=== PATIENT | male | born 1965 | race Caucasian/White ===

== ENCOUNTER 2024-07-28 11:11 | Emergency (ER) | payer BC, SELFPAY ==
[2024-07-28 11:33] VITALS: BP 167/96
[2024-07-28 12:04] LABS: % Basophils 0.5 % (0-2); % Eosinophils 0.8 % (0-6); % Immature Granulocytes 0.6 % (0-0.5); % Lymphocytes 13.9 % (20.5-51.1); % Monocytes 9.1 % (1.7-9.3); % Neutrophils 75.1 % (42.2-75.2); Absolute Eosinophils 0.1 10^3/uL (0-0.7); Absolute Immature Granulocytes 0.1 10^3/uL (0-0.05); Absolute Lymphocytes 1.1 10^3/uL (1.2-3.4); Absolute Monocytes 0.7 10^3/uL (0.1-0.6); Absolute Neutrophils 5.8 10^3/uL (1.4-6.5); Hematocrit 47.3 % (39.0-52.0); Hemoglobin 16.1 g/dL (13.0-18.0); Mean Corpuscular Hgb 32.3 pg (27.0-31.0); Mean Corpuscular Volume 94.8 fL (80.0-94.0); Mean Platelet Volume 10.7 fL (7.4-10.4); Nucleated Red Blood Cells % 0 % (-); Platelet Count 220 10^3/uL (130-400); Red Blood Cell Count 4.99 10^6/uL (4.70-6.10); Red Cell Dist. Width 13.3 % (11.5-14.5); White Blood Cell Count 7.7 10^3/uL (4.8-10.8)
[2024-07-28 12:12] LABS: INR 0.92; PT 12.7 Sec (11.4-14.6)
[2024-07-28 12:15] LABS: ALT (SGPT) 36 U/L (0-50); AST (SGOT) 19 U/L (17-59); Albumin 4.6 g/dl (3.5-5.0); Alkaline Phosphatase 55 U/L (38-126); Blood Urea Nitrogen 31 mg/dl (9-20); Calcium 9.6 mg/dl (8.4-10.2); Carbon Dioxide 27 mmol/L (22-30); Chloride 104 mmol/L (98-107); Glucose 104 mg/dl (70-99); Potassium 4.6 mmol/L (3.5-5.1); Sodium 140 mmol/L (135-145); Total Bilirubin 0.8 mg/dl (0.2-1.3); Total Protein 6.9 g/dl (6.3-8.2); eGFR > 60.00
[2024-07-28 12:26] LABS: Troponin I < 0.012 ng/ml
--- NOTE | 2024-07-28 13:47 | ED.GENMED ---
History of Present Illness
<Anne Chavez MD, Resident - Last Filed: 07/28/24 14:52>
General
Chief Complaint: Heart Rate Problem
Time Seen by Provider: 07/28/24 13:23
History of Present Illness
History of Present Illness:
59-year-old male with past medical history of asthma, MURIEL, BPH presents to the ED with irregular heart rhythm. Pt states he was first notified of an abnormal heart rhythm (Afib) about 45 days ago by his apple watch. He ignored this as has asthma and
his symptoms usually get worse around this time of the year. Pt notes he has had SOB after taking the stairs but attributed that to his asthma. Patient is scheduled for a right hernia repair next week and did his pre-op evaluation last week. Pt
states he forgot to mention he has had Afib at that time but called his primary care doctor yesterday and was advised to come to the ER for further evaluation. This morning patient got up to get his coffee but was having SOB which was unusual to
him. He has been feeling fatigued recently. Pt notes he has been noticing his bouncing heart rate more frequently lately that is occasionally associated with chest pain on the left side. Patient describes the pain as tightness. Pt has also recently
been diagnosed with MURIEL and will be using CPAP starting next week. Denies nausea, vomiting, diarrhea, cough, confusion. No history of stroke/TIA/ DVT/PE.
Past History
<Anne Chavez MD, Resident - Last Filed: 07/28/24 14:52>
Past History
ED Past Medical History: Asthma and Other (BPH, MURIEL)
ED Past Surgical History: None
Family History
Family History: CAD (Sister (had morbid obesity and at 63))
Review of Systems
<Anne Chavez MD, Resident - Last Filed: 07/28/24 14:52>
Review of Systems
Constitutional: Reports fatigue
EENT: Reports no symptoms
Respiratory: Reports no symptoms
Cardiac: Reports palpitations
ABD/GI: Reports no symptoms
: Reports no symptoms
Musculoskeletal: Reports no symptoms
Skin: Reports no symptoms
Neurological: Reports no symptoms
Endocrine: Reports no symptoms
Hematologic/Lymphatic: Reports no symptoms
Psychiatric: Reports no symptoms
Phy Exam
<Anne Chavez MD, Resident - Last Filed: 07/28/24 14:52>
Physical Exam
Physical Exam:
GENERAL: Alert, in no apparent distress
EYE: pupils equal and reactive
NECK: Supple, no significant adenopathy.
ENT: o/p clr, mmm.
CARDIAC: Irregular rhythm. Normal rate. Distal pulses strong bilaterally.
LUNGS: Clear breath sounds bilaterally, no acute respiratory distress, no wheezes/rales/rhonchi
ABDOMEN: Soft, without focal tenderness, no r/g, no cvat
NEUROLOGICAL: Alert and oriented, no focal neuro deficits
SKIN: Warm and dry, skin intact.
MUSCULOSKELETAL: No edema, well perfused.
PSYCH: Normal and appropriate interaction.
Course
<Anne Chavez MD, Resident - Last Filed: 07/28/24 14:52>
Orders/Labs/Results
Orders:
Orders
07/28/24 11:14
EKG [Electrocardiogram (*1)] Urgent
Reason for Study: Palpitations
07/28/24 11:15
EKG- Treatment ONCE
07/28/24 11:48
Complete Blood Count/With Diff Urgent
Comprehensive Metabolic Panel Urgent
PT/INR [Prothrombin Time] Urgent
TSH Reflex To Free T4 Urgent
Comment: TSH REFLEX ADDED ON BY FLOOR 2PM 07-28-24
Troponin I Urgent
07/28/24 14:07
Add On- LAB Urgent
Tests Added?: TSH reflex to T4
07/28/24 15:24
Apixaban [Eliquis] 5 mg PO ONCE ONE
Metoprolol Xl [Toprol Xl] 12.5 mg PO NOW STA
Abnormal Lab Results
07/28/24
11:48
MCV 94.8 H fL
(80.0-94.0)
MCH 32.3 H pg
(27.0-31.0)
MPV 10.7 H fL
(7.4-10.4)
Abs Immat Gran (auto) 0.1 H 10^3/uL
(0-0.05)
Absolute Lymphs (auto) 1.1 L 10^3/uL
(1.2-3.4)
Absolute Monos (auto) 0.7 H 10^3/uL
(0.1-0.6)
Immature Gran % 0.6 H %
(0-0.5)
Lymphocytes % 13.9 L %
(20.5-51.1)
BUN 31 H mg/dl
(9-20)
Glucose 104 H mg/dl
(70-99)
07/28/24 11:48
07/28/24 11:48
Vital Signs
Initial and Last Documented VS:
Initial Vital Signs
Temp Pulse Resp BP Pulse Ox
36.7 C 88 16 167/96 98
07/28/24 11:33 07/28/24 11:33 07/28/24 11:33 07/28/24 11:33 07/28/24 11:33
Last Documented Vital Signs
Temp Pulse Resp BP Pulse Ox
36.7 C 82 20 133/77 95
07/28/24 11:33 07/28/24 15:45 07/28/24 15:45 07/28/24 16:00 07/28/24 14:30
<Glen Mcwilliams MD - Last Filed: 07/28/24 16:28>
Orders/Labs/Results
Orders:
Orders
07/28/24 11:14
EKG [Electrocardiogram (*1)] Urgent
Reason for Study: Palpitations
07/28/24 11:15
EKG- Treatment ONCE
07/28/24 11:48
Complete Blood Count/With Diff Urgent
Comprehensive Metabolic Panel Urgent
PT/INR [Prothrombin Time] Urgent
TSH Reflex To Free T4 Urgent
Comment: TSH REFLEX ADDED ON BY FLOOR 2PM 07-28-24
Troponin I Urgent
07/28/24 14:07
Add On- LAB Urgent
Tests Added?: TSH reflex to T4
07/28/24 15:24
Apixaban [Eliquis] 5 mg PO ONCE ONE
Metoprolol Xl [Toprol Xl] 12.5 mg PO NOW STA
Abnormal Lab Results
07/28/24
11:48
MCV 94.8 H fL
(80.0-94.0)
MCH 32.3 H pg
(27.0-31.0)
MPV 10.7 H fL
(7.4-10.4)
Abs Immat Gran (auto) 0.1 H 10^3/uL
(0-0.05)
Absolute Lymphs (auto) 1.1 L 10^3/uL
(1.2-3.4)
Absolute Monos (auto) 0.7 H 10^3/uL
(0.1-0.6)
Immature Gran % 0.6 H %
(0-0.5)
Lymphocytes % 13.9 L %
(20.5-51.1)
BUN 31 H mg/dl
(9-20)
Glucose 104 H mg/dl
(70-99)
07/28/24 11:48
07/28/24 11:48
Vital Signs
Initial and Last Documented VS:
Initial Vital Signs
Temp Pulse Resp BP Pulse Ox
36.7 C 88 16 167/96 98
07/28/24 11:33 07/28/24 11:33 07/28/24 11:33 07/28/24 11:33 07/28/24 11:33
Last Documented Vital Signs
Temp Pulse Resp BP Pulse Ox
36.7 C 82 20 133/77 95
07/28/24 11:33 07/28/24 15:45 07/28/24 15:45 07/28/24 16:00 07/28/24 14:30
<Anne Chavez MD, Resident - Last Filed: 07/28/24 14:52>
MDM/Problems Addressed
Differential Diagnosis Includes:
New onset Afib
MDM/Problems Addressed:
- CBC, CMP
- EKG
- Troponin
- TSH
<Anne Chavez MD, Resident - Last Filed: 07/28/24 14:52>
*Critical Care Note
Total Time (30-74mins, 75-104mins- exclusive of procedures): Not Applicable
ED Attending Note
<Anne Chavez MD, Resident - Last Filed: 07/28/24 14:52>
-
Portions of this chart may have been created with voice recognition software.� Occasional wrong word or��sound alike� substitutions may have occurred due to the inherent limitations of voice recognition software.
<Glen Mcwilliams MD - Last Filed: 07/28/24 16:28>
ED Attending Note
Patient seen and examined by attending physician: Yes
I performed a history and physical exam of patient and discussed management with resident, I reviewed resident's note and agree with documented findings and plan of care.: Yes
ED Attending Note:
I have seen and evaluated the patient with a [id number] encounter. I have spoken to the resident and involved in the medical history, the physical exam, medical decision making.
Evaluation and management service: agree unless noted differently below.
Results interpretation: agree unless noted differently below.
Focused HPI: 59-year-old male presents to the emergency room with new onset A-fib. Patient is currently getting preoperative testing for hernia repair next week. He saw his primary doctor in the office for a physical exam, apparently he mentioned
that he has been having occasional palpitations and an alarm on his Apple Watch showing A-fib over the past month or 2. An EKG in the office showed new onset A-fib. Referred to the ER for assessment. Patient says that he has had only occasional
palpitations and some increased fatigue but no significant symptoms. He says he does get some shortness of breath but he thinks this is more asthma related rather than from A-fib as he typically gets similar symptoms at this time of year. No chest
pain. He denies any known history of A-fib or heart issues. He denies any other complaints.
Physical exam: Awake alert not in distress. Regular rate but irregularly irregular rhythm. No edema in the extremities. Breathing comfortably no distress.
Medical Decision Makin-year-old male was referred to the emergency room after being discovered to have new onset A-fib. He is rate controlled and essentially asymptomatic. He reports only occasional sensation of palpitations. Will plan to
start on low-dose beta-precious, no history of bleeding or bleeding risk, will proceed with anticoagulation on Eliquis. partnership development manager was able to help provide coupons to cover cost. Will refer to cardiology for further assessment. I had a long
conversation about this treatment plan, follow-up plan with the patient and he feels very comfortable with that. We did send screening labs including a CBC, CMP, thyroid studies, troponin levels which were all unremarkable. Discharged with
referral via our ER chest pain hotline�denies chest pain but this will help with expedited cardiology follow-up. All questions answered.
Discharge Plan
Departure
Patient Disposition: Home (Routine Discharge)
Date of Disposition: 07/28/24
Time of Disposition: 15:26
Patient with high blood pressure during this ER visit?: Yes
Discharge Problem:
Atrial fibrillation
Instructions: Atrial Fibrillation (DC), Chest Pain DCA Follow Up
Prescriptions:
New
Eliquis 5 mg tablet
5 mg PO BID Qty: 60 0RF
metoprolol succinate [Toprol XL] 25 mg tablet extended release 24 hr
12.5 mg PO DAILY Qty: 30 0RF
Referrals:
Wing Villar MD [Active] - Call in 1-3 days for appt
Wai Garrison MD [Family Provider] - Follow up in 5-7 days
Activity Restrictions/Additional Instructions:
Thank you for visiting the Emergency Department at [facility].
1. Please schedule a follow up appointment as directed. Call first thing tomorrow morning to make an appointment.
2. If indicated, please take your medications as instructed and indicated on discharge paperwork.
3. If any of your symptoms do not improve, or persist, or become more severe within 6-12 hours, please return to the emergency department for further care.
4. Please return to the emergency department if you develop a headache, neck pain/stiffness, fever greater than 100.4F, chest pain, shortness of breath, persistent nausea, vomiting, slurred speech, difficulty walking, numbness/tingling, weakness,
signs of infection or any other symptoms that are worrisome to you.
Please call [phone] if you have any questions.
Interventions
Interventions:
*Risk Screen - Suicide Last Done: 07/28/24 11:33
*General Assessment Last Done: 07/28/24 14:00
*Neglect/Abuse Screening Last Done: 07/28/24 11:33
ED- Fall Risk Assessment Last Done: 07/28/24 14:00
*ED COVID-19 Vaccine History Last Done: 07/28/24 14:00
ED- Cardiac Assessment Last Done: 07/28/24 14:00
ED- Pulmonary Assessment Last Done: 07/28/24 14:00
Discharge Date and Time
Print Language: MALAYSIAN
[2024-07-28 14:00] VITALS: BMI 32.6
[2024-07-28 14:04] VITALS: BP 131/83
[2024-07-28] MEDS: TOPROL XL 12.5 MG PO (15:33)
[2024-07-28 15:34] VITALS: BP 138/76
[2024-07-28] MEDS: ELIQUIS 5 MG PO (15:36)
--- NOTE | 2024-07-28 15:51 | CM ---
CM consult for Eliquis
Call with [facility] [phone]
Eliquis pricing obtained
Eliquis 5 mg BID
30 day retail- $100
90 day mail order- $200
Bedside meeting with pt and spouse
Costs affordable, educated on indigent program if needed in the future
Co-pay card along with trial card provided
[2024-07-28 16:00] VITALS: BP 133/77
[2024-07-28 16:11] LABS: TSH Reflex To Free T4 1.25 uIU/ml (0.47-4.68)
== END 2024-07-28 16:10 | disposition home or self-care (01) ==
LOC: EMR 11:11
PROVIDERS: Emergency Medicine; EMERGENCY PHYSICIAN Emergency Medicine; FAMILY PHYSICIAN Family Medicine
DX: I48.91 Unspecified atrial fibrillation (principal); J45.909 Unspecified asthma, uncomplicated; G47.33 Obstructive sleep apnea (adult) (pediatric); N40.0 Benign prostatic hyperplasia without lower urinary tract symptoms; Z82.49 Family history of ischemic heart disease and other diseases of the circulatory system; Z83.49 Family history of other endocrine, nutritional and metabolic diseases
CPT/HCPCS: 99283; 80053; 84443; 84484; 85025; 85610; 93005

== ENCOUNTER → 2024-07-31 09:27 | Day surgery (SDC) | payer BC, SELFPAY ==
--- NOTE | 2024-07-31 13:01 | ITS.CL.CARDI ---
Branch Office Manager - Cardioversion
Cardioversion
Procedure Report:
Date of Procedure: 07/31/24
Procedure: Cardioversion
Indication: Symptomatic atrial fibrillation
Performing Physician: Kell Mccormick DO [facility]
Anticoagulation: Eliquis
Preprocedure transesophageal echocardiogram without left atrial appendage thrombus.
Technique: The patient was brought to the holding area. Signed informed consent was obtained. A time out was called and performed. The patient was anesthetized by the anesthesia service. Anticoagulation status was reviewed and appropriate.
Transesophageal echocardiogram performed without complications; no left atrial pended thrombus. R2 pads were placed anteriorly and posteriorly. A 200 J synchronized biphasic shock restored normal sinus rhythm without significant bradycardia. There
were no complications.
Conclusion: Uncomplicated cardioversion from atrial fibrillation to sinus rhythm.
Recommendation: Routine post cardioversion care. Continue local intermodal truck driver anticoagulation.
== END | disposition home or self-care (01) ==
LOC: CATH 09:27
PROVIDERS: ATTENDING PHYSICIAN Internal Medicine Cardiovascular Disease; FAMILY PHYSICIAN Family Medicine
DX: I48.91 Unspecified atrial fibrillation (principal); Z79.01 Long term (current) use of anticoagulants; I08.1 Rheumatic disorders of both mitral and tricuspid valves; Z79.899 Other long term (current) drug therapy
CPT/HCPCS: 93312; 93320; 93325; 92960; 93005

== ENCOUNTER → 2024-08-17 07:13 | Outpatient (REF) | payer BC, SELFPAY | LOC: DHCBC/DCA 07:13 | PROVIDERS: ATTENDING PHYSICIAN Internal Medicine Cardiovascular Disease; FAMILY PHYSICIAN Family Medicine | DX: R06.02 Shortness of breath (principal); I48.19 Other persistent atrial fibrillation | CPT/HCPCS: 78452; 93017; A9500 ==

== ENCOUNTER 2024-10-15 09:38 | Day surgery (SDC) | payer OTHER, SELFPAY ==
--- NOTE | 2024-10-15 11:11 | ITS.CL.CARDI ---
Supervisor Scrap Preparation - Cardioversion
Cardioversion
Procedure Report:
Date of Procedure: 10/15/24
Procedure: Cardioversion
Indication: Symptomatic atrial fibrillation
Performing Physician: Jose Nguyễn MD
Technique: The patient was brought to the holding area. Signed informed consent was obtained. A time out was called and performed. The patient was anesthetized by the anesthesia service. Anticoagulation status was reviewed and appropriate. R2 pads
were placed anteriorly and posteriorly. A 200 J synchronized biphasic shock restored normal sinus rhythm without significant bradycardia. There were no complications.
Conclusion: Uncomplicated cardioversion from atrial fibrillation to sinus rhythm.
Recommendation: Routine post cardioversion care. Continue detention anticoagulation.
[2024-10-15 11:27] VITALS: BMI 31.3
== END 2024-10-15 12:07 | disposition home or self-care (01) ==
LOC: CATH 09:38
PROVIDERS: ATTENDING PHYSICIAN Internal Medicine Cardiovascular Disease; FAMILY PHYSICIAN Family Medicine; OTHER PHYSICIAN Internal Medicine Cardiovascular Disease
DX: I48.19 Other persistent atrial fibrillation (principal); Z79.01 Long term (current) use of anticoagulants
CPT/HCPCS: 92960; 93005

== ENCOUNTER 2024-11-18 08:00 | Day surgery (SDC) | payer OTHER, SELFPAY ==
[2024-10-29 13:14] VITALS: BMI 33.9
[2024-10-29 13:46] LABS: % Basophils 0.8 % (0-2); % Eosinophils 0.9 % (0-6); % Immature Granulocytes 0.3 % (0-0.5); % Lymphocytes 21.1 % (20.5-51.1); % Monocytes 6.8 % (1.7-9.3); % Neutrophils 70.1 % (42.2-75.2); Absolute Basophils 0.1 10^3/uL (0-0.2); Absolute Eosinophils 0.1 10^3/uL (0-0.7); Absolute Lymphocytes 1.6 10^3/uL (1.2-3.4); Absolute Monocytes 0.5 10^3/uL (0.1-0.6); Absolute Neutrophils 5.3 10^3/uL (1.4-6.5); Hematocrit 45.8 % (39.0-52.0); Hemoglobin 15.7 g/dL (13.0-18.0); Mean Corp Hgb Conc. 34.3 g/dL (33.0-37.0); Mean Corpuscular Hgb 32.2 pg (27.0-31.0); Mean Corpuscular Volume 93.9 fL (80.0-94.0); Mean Platelet Volume 10.7 fL (7.4-10.4); Nucleated Red Blood Cells % 0 % (-); Platelet Count 217 10^3/uL (130-400); Red Blood Cell Count 4.88 10^6/uL (4.70-6.10); Red Cell Dist. Width 12.7 % (11.5-14.5); White Blood Cell Count 7.6 10^3/uL (4.8-10.8)
[2024-10-29 13:55] LABS: INR 1.03
[2024-10-29 14:06] LABS: ALT (SGPT) 38 U/L (0-50); AST (SGOT) 16 U/L (17-59); Albumin 4.4 g/dl (3.5-5.0); Alkaline Phosphatase 56 U/L (38-126); Blood Urea Nitrogen 32 mg/dl (9-20); Calcium 9.9 mg/dl (8.4-10.2); Carbon Dioxide 27 mmol/L (22-30); Chloride 102 mmol/L (98-107); Estimated Creatinine Clearance 89 ml/min; Glucose 91 mg/dl (70-99); Potassium 4.1 mmol/L (3.5-5.1); Sodium 138 mmol/L (135-145); Total Bilirubin 0.9 mg/dl (0.2-1.3); Total Protein 6.8 g/dl (6.3-8.2); eGFR > 60.00
[2024-11-18] VITALS (12 sets, daily range): BP systolic 121–154; BP diastolic 63–93
[2024-11-18 11:38] LABS: ACT-LR - POC 326 Seconds (116-155)
[2024-11-18 11:53] LABS: ACT-LR - POC 358 Seconds (116-155)
[2024-11-18] MEDS: ANESTHETIC LOZENGE 1 LOZENGE PO (13:36)
--- NOTE | 2024-11-18 16:25 | ITS.CL.ABL ---
Virtualization Architect - Ablation
Ablation
Procedure Report:
ELECTROPHYSIOLOGIC STUDY AND POSSIBLE ABLATION
DATE: November 18, 2024
Primary Care Provider: Dr. Wai Garrison
Primary Director Of Dietary: Dr Kell Mccormick
INDICATION:
Symptomatic Atrial Fibrillation.
Persistent
HISTORY: See H and P.
Symptomatic AF, poorly controlled with attempted medical therapy
HAS-BLED: 0
CHADSVASc: 0
PRESENTING RHYTHM: SR -> AF
HISTORY: See H and P.
Symptomatic AF, poorly controlled with attempted medical therapy.
ANTICOAGULATION: Apixaban
'TIME-OUT': called and confirmed.
SEDATION/ANESTHESIA: provided via the anesthesia department using general anesthesia.
PROCEDURE:
Ultrasound Guidance with real-time visualization of needle insertion and vessel patency performed by ks for femoral venous Vascular Access.
Under real-time US guidance, the needle was advanced with negative pressure into the vein. The needle was seen entering the vessel lumen with a good return of dark red flow, the syringe was removed, non-pulsatile, dark red blood low was noted and
the wire was passed without difficulty, then the needle was removed. US confirmed the wire was in the vein, not going into an artery,
Images were taken and saved for the patient's permanent record. Imaging findings typical femoral venous anatomy. Direct visualization of needle puncture into the femoral vein was observed and recorded.
A decapolar CS catheter was placed within the CS for mapping and pacing.
The intracardiac ultrasound catheter was positioned in the RA for continuous intracardiac ultrasound imaging.
Heparin bolus and infusion to target ACT at 300 -350 seconds was administered. Transseptal puncture was performed. This entailed advancing a sheath with dilator into the superior vena cava and withdrawing both (monitoring intracardiac ultrasound,
fluoroscopy and tip pressure) with the tip oriented toward the atrial septum. The fossa ovalis was engaged (indicated by sudden displacement of the sheath tip as well as tenting of the fossa seen on intracardiac ultrasound).
The Farapulse transseptal system was used. Left atrial catheter position was confirmed by echocardiographic imaging and fluoroscopy followed by RF delivery using the CREATIV[employer]COM system resulting in successful LA access with pressure monitoring
demonstrating LA pressure waveforms (LA mean pressure 14 mm Hg). The sheath was advanced over the dilator and positioned in the left atrium.
The Anaya Grid multipolar mapping catheter was initially positioned through the transseptal sheath for high density mapping.
Geometry and voltage mapping was performed using the Anaya multipolar grid catheter. Ensite-X was utilized for three-dimensional electroanatomical mapping.
A 3-D map was created using Ensite-X in Voxel mode. A 3-D reconstructed CT image was compared to the 3-D Navex map to assist in anatomic evaluation, mapping and ablation.
The Dolphin catheter and system was used for cardiac ablation. Catheter positioning was guided and confirmed using both I.C.E. and fluoroscopy.
PV isolation approach was used to electrically isolate each PV ostia (LSPV, LIPV, RSPV, RIPV).
Additional energy applications/additional ablation set was required to accomplish wide area circumferential ablation around each of the pulmonary vein sets and additionally ablation to accomplish LA posterior wall ablation.
Remapping with the Anaya multipolar grid catheter found that all PVPs were eliminated at each vein demonstrating entrance block. Also pacing from the multipolar mapping catheter around the the circumference of the ostia was performed at 10 ma and
2.0 msec output to assess for exit block. This demonstrated electrical isolation at each of the pulmonary vein ostia (LSPV, LIPV, RSPV, RIPV). There is also entrance and exit block at the LA posterior wall.
Programmed electrostimulation which included both burst atrial pacing and delivery of atrial decremental extrastimuli down to atrial ERP failed to induce any sustained arrhythmias.
I.C.E. :
Pre-Ablation Post-Ablation
LVEF: 55 % 55 %
WMA: none none
Pericardial effusion: none none
COMPLICATIONS:
None
SUMMARY:
- Mapping and ablation to isolate the PVs
- Additional AF ablation set after PVI.
- 3-D Electroanatomical Mapping
- Intracardiac Ultrasound
- Ultrasound guidance for vascular access
Post ablation, I discussed today's findings and results with the patient's , Alethea.
RECOMMENDATIONS:
- Observe in monitored bed.
- Maintain oral anticoagulation.
- Office visit with me is scheduled for February 11, 2025.
Copy to:
Dr. Wai Garrison
Dr Kell Mccormick
--- NOTE | 2024-11-18 16:55 | W.PN.UPDATE ---
Update Note
Progress Note Update
59 yo WM s/p PVI (same day). He denies cp, sob, jose diet, voiding, amb w/o dizziness, EKG SR, R fem site c/d/i no HT, soft. He will resume Eliquis tonight and resume diltiazem tomorrow with low HR today. Activity restrictions reviewed. He will f/u
Dr. Martinez in 1 mo. He is for d/c home after 5pm if groin stable.
== END 2024-11-18 17:17 | disposition home or self-care (01) ==
LOC: CATH 08:00
PROVIDERS: ATTENDING PHYSICIAN Internal Medicine Cardiovascular Disease; FAMILY PHYSICIAN Family Medicine; OTHER PHYSICIAN Internal Medicine Cardiovascular Disease
DX: I48.0 Paroxysmal atrial fibrillation (principal); K40.90 Unilateral inguinal hernia, without obstruction or gangrene, not specified as recurrent; Z79.01 Long term (current) use of anticoagulants; I10 Essential (primary) hypertension; J45.901 Unspecified asthma with (acute) exacerbation; E66.9 Obesity, unspecified; Z68.33 Body mass index [BMI] 33.0-33.9, adult; G47.33 Obstructive sleep apnea (adult) (pediatric); N40.0 Benign prostatic hyperplasia without lower urinary tract symptoms; N20.0 Calculus of kidney; K76.9 Liver disease, unspecified; Z79.899 Other long term (current) drug therapy
CPT/HCPCS: C1732; C1892; 36415; 75572; 76937; 80053; 83735; 85025; 85347; 85610; 86850; 86900; 86901; 93005; 93656; 93657; C1733; C1766; Q9967

== ENCOUNTER 2025-04-26 14:06 | Emergency (ER) | payer OTHER, SELFPAY ==
[2025-04-26 14:07] VITALS: BP 156/86
--- NOTE | 2025-04-26 16:09 | ED.GENMED ---
Addendum entered and electronically signed by Lang Vanegas PA-C 04/28/25 14:03:
9 AM: Patient had positive fluid culture aspirate of Staph aureus. I contacted patient via telephone and left voicemail for patient to contact the ER back to discuss these results.
Original Note:
History of Present Illness
<Jade Sarkar PA-C - Last Filed: 04/27/25 00:29>
General
Chief Complaint: Musculo-Skeletal Complaint
Source: patient
Exam Limitations: none
Time Seen by Provider: 04/26/25 15:48
Nursing documentation reviewed up to this point in time: agreed with
History of Present Illness
History of Present Illness:
see MDM
Past History
<DANIEL Tilley Last Filed: 04/27/25 00:29>
Past History
ED Past Medical History: Asthma and Other (BPH, MURIEL)
ED Past Surgical History: None
Family History
Family History: CAD (Sister (had morbid obesity and at 63))
Phy Exam
<DANIEL Tilley Last Filed: 04/27/25 00:29>
Physical Exam
Physical Exam:
GENERAL: Alert , in no apparent distress
EYE: pupils equal and reactive
NECK: Supple
ENT: o/p clr, mmm.
CARDIAC: Regular rate and rhythm .
LUNGS: Clear breath sounds bilaterally, no acute respiratory distress, no wheezes/rales/rhonchi
ABDOMEN: Soft, without focal tenderness, no r/g, no cvat, normal bowel sounds
NEUROLOGICAL: Alert and oriented, no focal neuro deficits
SKIN: Warm and dry, skin intact.
erythema and warmth iffusely posterior L elbow with STS and tenderness;
MUSCULOSKELETAL: No edema, well perfused. neg willian's sign
L elbow full ROM, no significnat pain
tenderness at the bursa/olecranon
PSYCH: Normal and appropriate interaction.
Course
<Jade Sarkar PA-C - Last Filed: 04/27/25 00:29>
Orders/Labs/Results
Orders:
Orders
04/26/25 16:17
Ketorolac [Toradol] 30 mg IV NOW STA
04/26/25 16:29
Complete Blood Count/With Diff Urgent
Comprehensive Metabolic Panel Urgent
Lactic Acid Urgent
Lyme Progressive Urgent
Blood Culture Q30M
ALIEC Source: Blood/Venous
Specimen Description:
Blood Culture Q30M
ALICE Source: Blood/Venous
Specimen Description:
04/26/25 17:32
Clindamycin HCl [Cleocin] 300 mg PO NOW STA
04/26/25 17:55
Amoxicillin [Amoxil] 500 mg PO NOW STA
Doxycycline [Vibramycin] 100 mg PO NOW STA
04/26/25 18:06
Body Fluid Crystals Urgent
What is the Body Fluid: joint
Date Specimen was Collected: 04/26/25
Time Specimen was Collected: 18:03
Fluid Culture with Gram Stain Urgent
ALICE Source: Joint Fluid
Specimen Description:
Date Specimen was Collected: 04/26/25
Time Specimen was Collected: 18:03
Wound Culture [Wound/Abscess/Other Culture] Urgent
ALICE Source: Abscess
Specimen Description:
Date Specimen was Collected: 04/26/25
Time Specimen was Collected: 16:17
Abnormal Lab Results
04/26/25
16:29
MCH 31.8 H pg
(27.0-31.0)
Absolute Neuts (auto) 8.0 H 10^3/uL
(1.4-6.5)
Absolute Lymphs (auto) 1.1 L 10^3/uL
(1.2-3.4)
Absolute Monos (auto) 1.0 H 10^3/uL
(0.1-0.6)
Neutrophils % 78.1 H %
(42.2-75.2)
Lymphocytes % 10.5 L %
(20.5-51.1)
Monocytes % 10.0 H %
(1.7-9.3)
BUN 21 H mg/dl
(9-20)
04/26/25 16:29
04/26/25 16:29
Vital Signs
Temp: 100.1 F
Initial and Last Documented VS:
Initial Vital Signs
Temp Pulse Resp BP Pulse Ox
98.4 F 86 16 156/86 96
04/26/25 14:07 04/26/25 14:07 04/26/25 14:07 04/26/25 14:07 04/26/25 14:07
Last Documented Vital Signs
Temp Pulse Resp BP Pulse Ox
100.1 F 63 18 129/75 95
04/26/25 16:18 04/26/25 16:44 04/26/25 16:44 04/26/25 16:44 04/26/25 16:44
<Georges HDavid Meadows, DO - Last Filed: 04/27/25 20:18>
Orders/Labs/Results
Orders:
Orders
04/26/25 16:17
Ketorolac [Toradol] 30 mg IV NOW STA
04/26/25 16:29
Complete Blood Count/With Diff Urgent
Comprehensive Metabolic Panel Urgent
Lactic Acid Urgent
Lyme Progressive Urgent
Blood Culture Q30M
ALICE Source: Blood/Venous
Specimen Description:
Blood Culture Q30M
ALICE Source: Blood/Venous
Specimen Description:
04/26/25 17:32
Clindamycin HCl [Cleocin] 300 mg PO NOW STA
04/26/25 17:55
Amoxicillin [Amoxil] 500 mg PO NOW STA
Doxycycline [Vibramycin] 100 mg PO NOW STA
04/26/25 18:06
Body Fluid Crystals Urgent
What is the Body Fluid: joint
Date Specimen was Collected: 04/26/25
Time Specimen was Collected: 18:03
Fluid Culture with Gram Stain Urgent
ALICE Source: Joint Fluid
Specimen Description:
Date Specimen was Collected: 04/26/25
Time Specimen was Collected: 18:03
Wound Culture [Wound/Abscess/Other Culture] Urgent
ALICE Source: Abscess
Specimen Description:
Date Specimen was Collected: 04/26/25
Time Specimen was Collected: 16:17
Abnormal Lab Results
04/26/25
16:29
MCH 31.8 H pg
(27.0-31.0)
Absolute Neuts (auto) 8.0 H 10^3/uL
(1.4-6.5)
Absolute Lymphs (auto) 1.1 L 10^3/uL
(1.2-3.4)
Absolute Monos (auto) 1.0 H 10^3/uL
(0.1-0.6)
Neutrophils % 78.1 H %
(42.2-75.2)
Lymphocytes % 10.5 L %
(20.5-51.1)
Monocytes % 10.0 H %
(1.7-9.3)
BUN 21 H mg/dl
(9-20)
04/26/25 16:29
04/26/25 16:29
Vital Signs
Initial and Last Documented VS:
Initial Vital Signs
Temp Pulse Resp BP Pulse Ox
98.4 F 86 16 156/86 96
04/26/25 14:07 04/26/25 14:07 04/26/25 14:07 04/26/25 14:07 04/26/25 14:07
Last Documented Vital Signs
Temp Pulse Resp BP Pulse Ox
100.1 F 63 18 129/75 95
04/26/25 16:18 04/26/25 16:44 04/26/25 16:44 04/26/25 16:44 04/26/25 16:44
<Jade Sarkar PA-C - Last Filed: 04/27/25 00:29>
MDM/Problems Addressed
Differential Diagnosis Includes:
see MDM
MDM/Problems Addressed:
Note:
CHIEF COMPLAINT(S)
Swelling and tenderness in the elbow.
HISTORY OF PRESENT ILLNESS
The patient is a 60-year-old male who reports swelling and discomfort in the elbow which started yesterday as a minor issue but became significantly more pronounced this morning. The patient recently resumed golfing, which he mentioned to be more
frequent but denied any trauma or falls. Tno known tick exposures but he is outside a lot. had some R medial ankle pain/swelling last week but that resolved. They presented with a temperature of 100.1 degrees Fahrenheit. There were no recent long
travels, chest pain, or shortness of breath. The patient has no history of blood clots.
pt has never had diagnosed gout
able to bed the elbow
no itchiness/burning or blisters
PAST MEDICAL AND SURGICAL HISTORY
The patient has a cardiovascular history and has undergone six cardioversions. The patient is off blood thinner Apixaban and is managed with beta-precious medications like Diltiazem.
ALLERGIES
The patient is allergic to Bactrim (Sulfamethoxazole and Trimethoprim).
REVIEW OF SYSTEMS
- Musculoskeletal: Swelling and tenderness in the elbow, previously had discomfort in the legs.
- Neurologic: Recent heaviness and discomfort in the calf.
- Immune: Presenting fever of 100.1 degrees Fahrenheit.
- Integumentary: Noted swelling in the elbow area, possibly indicative of bursitis.
PHYSICAL EXAM
- Upper Extremity: Swelling observed in the elbow area, boggy and eryhematous, suspected bursitis.
full ROM
- Vital Signs: Nursing notes reviewed and vital signs reviewed.
PROBLEM LIST
- Acute: Swelling and tenderness in the elbow, suspected bursitis.
- Acute: Low-grade fever.
- Acute: Heaviness and discomfort in the calf.
- Chronic: History of cardiac issues requiring cardioversion.
PLAN
- Perform an aspiration of the swollen area in the elbow to obtain fluid for culture, assessing bacterial involvement.
- Conduct blood cultures to evaluate potential bacteremia, considering the presence of fever.
- Execute lab tests, including basic metabolic panel and possibly a Lyme disease panel due to tick exposure risk.
- Initiating empirical antibiotic therapy with Doxycycline, recognizing its utility against Lyme disease.
- Patients will be advised on strict return precautions for any worsening symptoms, especially involving immobility or increased pain.
DIFFERENTIAL DIAGNOSIS
The Differential Diagnosis includes, in no particular order and is not limited to:
1. Bursitis
2. Septic arthritis
3. Lyme disease
4. Cellulitis
5. Gout
6. Deep vein thrombosis
7. Rheumatoid arthritis
8. Tendonitis
9. Trauma-induced swelling
10. Infectious arthritis
60 y/o M
h/o previous AF off eliquis now
here with pain/swelling/redness posterior elbow
subjective chills/fever
no injuries, no rashes, no burning
neve rhad this before
no h/o gout
on exam pt has swelling and erythema osterior elbow over elecranon and extending 4 cm distal and 4 cm proximally into the posterior arm
but he can fully rotate and flex
mild tendenress olecranon
d/w ed attending dr. meadows who saw the patient
recommend aspirate the bursa for culutre which i did, 5 cc of serosanguanous fluid
wbc/alactate reassuring
pt seems to meet criteria for treatment for outpatient septic burisitis
initially chose clinda but pt is scared to take after had reaction
doxycycline and amox per algorithm to cover staph and strep
d/c home
navdeep wrap
<Jade Sarkar PA-C - Last Filed: 04/27/25 00:29>
*Pulse Oximetry
SaO2: 96
Oxygen Mode of Delivery: Room air
Patient hypoxic: no (95)
*Critical Care Note
Total Time (30-74mins, 75-104mins- exclusive of procedures): Not Applicable
ED Attending Note
<Jade Sarkar PA-C - Last Filed: 04/27/25 00:29>
-
Portions of this chart may have been created with voice recognition software.� Occasional wrong word or��sound alike� substitutions may have occurred due to the inherent limitations of voice recognition software.
<Georges Meadows DO - Last Filed: 04/27/25 20:18>
ED Attending Note
Patient seen and examined by attending physician: Yes
I performed the substantive portion of visit, reviewed & personally made and approve the management plan that is documented in note by myself or LAMAR.: Yes
ED Attending Note:
agree with Melia's note
Pt with swelling, pain, redness of left elbow. Area has some erythema and tenderness but not an extensive amount.
Melia will attempt to aspirate.
Oral abx
Discharge Plan
Departure
Patient Disposition: Home (Routine Discharge)
Date of Disposition: 04/26/25
Time of Disposition: 17:56
Patient with high blood pressure during this ER visit?: No
Condition: Fair
Discharge Problem:
Septic bursitis of elbow
Instructions: Bursitis - ED (DC)
Prescriptions:
New
doxycycline hyclate 100 mg capsule
100 mg PO BID Qty: 20 0RF
amoxicillin 875 mg tablet
875 mg PO BID Qty: 20 0RF
No Action
Eliquis 5 mg tablet
5 mg PO BID Qty: 60 0RF
zinc 15 mg Tablet
30 mg PO DAILY
sildenafil 25 mg Tablet
25 mg PO DAILY PRN (Reason: erectile dysfunction)
montelukast [Singulair] 10 mg Tablet
10 mg DAILY
albuterol 90 mcg/actuation Aerosol
180 mcg INHALATION PRN PRN (Reason: sob)
ascorbic acid (vitamin C) 1,000 mg Capsule, Extended Release
1 cap PO DAILY
cholecalciferol (vitamin D3) [Vitamin D3] 125 mcg (5,000 unit) Tablet
125 mcg PO DAILY
diltiazem HCl 120 mg Capsule,Extended Release 24hr
120 mg PO QPM
fluticasone furoate-vilanterol [Breo Ellipta] 200-25 mcg/dose Blister With Device
1 inh INHALATION DAILY
Gnc Johanny
300 mcg PO DAILY
Multivitamin - Gnc Prostate & Vitality
2 tab PO HS
Theralogix Prostate Sr Saw Palmento
2 tab PO DAILY
Referrals:
Wai Garrison MD [Family Provider, Family Practice]
Activity Restrictions/Additional Instructions:
WE SENT THE FLUID FOR ANALYSIS FOR TESTING FOR GOUT AND FOR BACTERIA
WE WILL CALL YOU IF WE NEED TOS WITCH THE ANTIBIOTIC
TAKE DOXYCYCLINE TIWCE A DAY FOR 10 DAYS
AMOXICILLIN TWICE A DAY FOR 10 DAYS
MAKE SURE TO AVOID SUN EXPOSURE WHILE ON DOXYCYCLINE, CAN MAKE YOU GET SUNBURN EASILY
MAKE SURE TO CHECK THE AREA OF REDNESS TO KNOW IF IT IS EXTENDING OUTSIDE THE LINE
RETURN FOR: HIGH FEVER CONTINUING DESPITE ANTIBIOTICS, WORSENING REDNESS, INABILITY TO MOVE THE ELBOW OR ANY CONCERNS.
Interventions
Interventions:
*Risk Screen - Suicide Last Done: 04/26/25 14:07
*General Assessment Last Done: 04/26/25 15:23
*Neglect/Abuse Screening Last Done: 04/26/25 14:07
*ED- Fall Risk Assessment Last Done: 04/26/25 15:23
*ED COVID-19 Vaccine History Last Done: 04/26/25 15:23
*Nursing Disposition Last Done: 04/26/25 18:18
ED-Musculoskeletal Assessment Last Done: 04/26/25 15:23
Discharge Date and Time
Discharge Date/Time: 04/26/25 18:18
Print Language: LATVIAN
[2025-04-26] MEDS: TORADOL 30 MG IV (16:38)
[2025-04-26 16:44] VITALS: BP 129/75
[2025-04-26 16:44] LABS: Hematocrit 44.1 % (39.0-52.0); Hemoglobin 15.0 g/dL (13.0-18.0); Mean Corp Hgb Conc. 34.0 g/dL (33.0-37.0); Mean Corpuscular Volume 93.4 fL (80.0-94.0); Nucleated Red Blood Cells % 0 % (-); Platelet Count 192 10^3/uL (130-400); Red Cell Dist. Width 13.2 % (11.5-14.5)
[2025-04-26 17:02] LABS: ALT (SGPT) 36 U/L (0-50); AST (SGOT) 17 U/L (17-59); Albumin 4.2 g/dl (3.5-5.0); Alkaline Phosphatase 62 U/L (38-126); Blood Urea Nitrogen 21 mg/dl (9-20); Calcium 9.5 mg/dl (8.4-10.2); Carbon Dioxide 28 mmol/L (22-30); Chloride 103 mmol/L (98-107); Glucose 96 mg/dl (70-99); Potassium 4.3 mmol/L (3.5-5.1); Sodium 137 mmol/L (135-145); Total Protein 6.7 g/dl (6.3-8.2); eGFR > 60.00
[2025-04-26] MEDS: VIBRAMYCIN 100 MG PO (18:01)
[2025-04-26] MEDS: AMOXIL 500 MG PO (18:01)
[2025-04-27 14:06] LABS: Lyme Antibody Screen, EIA Negative (Negative)
== END 2025-04-26 18:18 | disposition home or self-care (01) ==
LOC: EMR 14:06
PROVIDERS: Physician Assistant; EMERGENCY PHYSICIAN Emergency Medicine; FAMILY PHYSICIAN Family Medicine
DX: M71.122 Other infective bursitis, left elbow (principal); M25.522 Pain in left elbow; A49.01 Methicillin susceptible Staphylococcus aureus infection, unspecified site; J45.909 Unspecified asthma, uncomplicated; G47.33 Obstructive sleep apnea (adult) (pediatric); N40.0 Benign prostatic hyperplasia without lower urinary tract symptoms; I48.91 Unspecified atrial fibrillation; Z88.2 Allergy status to sulfonamides; Z88.1 Allergy status to other antibiotic agents; Z88.8 Allergy status to other drugs, medicaments and biological substances
CPT/HCPCS: 99284; 96374; 80053; 83605; 85025; 86618; 87015; 87040; 87070; 87147; 87205; 89060